=== PATIENT | female | born 1995 | race Caucasian/White ===

== ENCOUNTER 2020-04-05 22:40 | Inpatient (IN) | payer SELFPAY ==
[2020-04-05 22:42] VITALS: BP 107/63; PULSE 87; RESP 18; TEMP 36.6; O2SAT 98; BMI 25.7
--- NOTE | 2020-04-05 22:51 | ED_ITS ---
HPI - Psych General: Chief Complaint: Psychiatric Symptoms Stated Complaint: PSYCH/ HALLUCINATIONS Time Seen by Provider: 04/05/20 22:41 Source: patient and EMS Mode of arrival: EMS Limitations: no limitations History of Present Illness: HPI Narrative: 24-year-old female who is here by EMS for acute psychosis. Per EMS patient has not been taking her medicine. She has a flight of ideas here and is very difficult to talk to. She states she feels like she is going to and that her eyes are popping out of her sockets. Associated symptoms: Deny depression Review of Systems Const: Denies: fever(s), chills, body aches or change in appetite Eyes: Denies: blurry vision or eye discomfort ENMT: Denies: throat pain or dental pain Card: Denies: chest pain Resp: Denies: dyspnea GI: Denies: abdominal pain, nausea, vomiting or diarrhea : Denies: dysuria Musc: Denies: neck pain or back pain Skin/Breast: Denies: rash Neuro: Denies: headache(s) Psych: Denies: depression Kendall/Lymph: Denies: easy bruising All/Imm: Denies: urticaria PFSH ED PFSH: Social History Smoking and tobacco status: current every day smoker Physical Exam Const: COMMON NORMALS: no acute distress and patient oriented x3 GENERAL APPEARANCE: disheveled HENMT: COMMON NORMALS: normocephalic and atraumatic HEAD & SCALP: normocephalic and atraumatic Eye: COMMON NORMALS: Equal, round and reactive pupils present and EOMs intact bilaterally PUPIL: Yes Equal, round and reactive pupils present Neck/C-Spine: COMMON NORMALS: full ROM and supple Chest: COMMONS NORMALS: normal inspection of the chest and normal palpation of entire chest wall Resp: COMMON NORMALS: normal respiratory effort, No retractions, No use of accessory muscles and clear to auscultation bilaterally AUSCULTATION: clear to auscultation bilaterally Cardio: COMMON NORMALS: regular rate, regular rhythm and No murmurs present (Cardio) RATE: regular rate RHYTHM: regular rhythm GI: COMMON NORMALS: Normal to inspection, nondistended, normoactive bowel sounds present, Soft to palpation, non-tender and no masses PALPATION: Yes Soft to palpation Extremity: COMMON NORMALS: normal to inspection and full ROM Neuro: COMMON NORMALS: patient oriented x3, moves all extremities and no focal motor deficits Psych: COMMON NORMALS: cooperative THOUGHT PROCESS: disorganized, Flight of ideas present and Illogical thought process present THOUGHT CONTENT: Yes Hallucination(s) present Skin: COMMON NORMALS: no rashes or lesions noted and no wounds GENERAL SKIN EXAM: no rashes or lesions noted MDM - Psych MDM Narrative: Medical decision making narrative: Patient presents with acute psychosis was placed on a 96-hour hold. Patient's lab work here are normal and she is medically cleared. I spoke to Dr. Zavaleta and will admit to psych unit. Lab Data: Labs: Lab Results 04/05/20 04/05/20 Range/Units 22:54 22:54 WBC 9.4 (4.0-10.0) 10^3/ uL RBC 4.27 (4.1-5.3) 10^6/u L Hgb 13.4 (11.5-15.3) g/dL Hct 40.3 (37.0-47.0) % MCV 94.4 (81-99) fL MCH 31.4 (28.0-34.0) pg MCHC 33.3 (30.0-36.0) g/dL RDW 13.8 (12.1-15.1) % Plt Count 385 (130-400) 10^3/c mm MPV 9.5 (7.4-10.4) fL Neut % (Auto) 68.7 % Lymph % (Auto) 19.9 % [place] % (Auto) 8.5 % Eos % (Auto) 2.1 % Baso % (Auto) 0.4 % Neut # (Auto) 6.4 (1.8-7.7) 10^3/u L Lymph # (Auto) 1.9 (0.8-4.8) 10^3/u L [place] # (Auto) 0.8 (0.2-0.9) 10^3/u L Eos # (Auto) 0.2 (0.0-0.8) 10^3/u L Baso # (Auto) 0.0 (0.0-0.1) 10^3/u L Nucleated RBC % (a uto) 0 % Nucleated RBCs # 0.0 /100WBC Sodium 141 (136-145) mmol/L Potassium 3.4 L (3.5-5.1) mmol/L Chloride 105 (98-107) mmol/L Carbon Dioxide 26 (22-29) mmol/L Anion Gap 13.4 (5-19) BUN 12 (6-20) mg/dL Creatinine 0.6 (0.5-0.9) mg/dL GFR Calculation 120.8 (90-130) mL/min Glucose 118 H (65-115) mg/dL Calculated Osmolal ity 289 (285-295) mOsm/k g Calcium 9.7 (8.5-10.5) mg/dL Total Bilirubin 0.8 (0.15-1.2) mg/dL AST 17 (0-32) U/L ALT 7 (0-33) U/L Alkaline Phosphata se 63 (35-105) IU/L Total Protein 7.2 (6.6-8.7) g/dL Albumin 4.2 (3.5-5.2) g/dL Globulin 3.0 (1.3-4.6) g/dL Salicylates < 0.3 L (3-10) mg/dL Acetaminophen < 5.0 L (10-30) ug/mL Ethyl Alcohol < 10 (0-10) mg/dL Discharge Plan Discharge Patient Disposition: Admitted As Inpatient Admit Provider: Ramsey Zavaleta Clinical Impression: Acute psychosis Condition: Stable Coding Level of Care Code 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
[2020-04-05 22:59] LABS: Basophils % 0.4 %; Eosinophils # 0.2 10^3/uL (0.0-0.8); Eosinophils % 2.1 %; Hematocrit 40.3 % (37.0-47.0); Hemoglobin 13.4 g/dL (11.5-15.3); Lymphocytes # 1.9 10^3/uL (0.8-4.8); Lymphocytes % 19.9 %; Mean Corpuscular HGB Conc 33.3 g/dL (30.0-36.0); Mean Corpuscular Hemoglobin 31.4 pg (28.0-34.0); Mean Corpuscular Volume 94.4 fL (81-99); Mean Platelet Volume 9.5 fL (7.4-10.4); Monocytes # 0.8 10^3/uL (0.2-0.9); Monocytes % 8.5 %; Neutrophils # 6.4 10^3/uL (1.8-7.7); Neutrophils % 68.7 %; Nucleated Red Blood Cells % 0 %; Platelet Count 385 10^3/cmm (130-400); Red Blood Count 4.27 10^6/uL (4.1-5.3); Red Cell Distribution Width 13.8 % (12.1-15.1); White Blood Count 9.4 10^3/uL (4.0-10.0)
[2020-04-05 23:16] LABS: Alanine Aminotransferase 7 U/L (0-33); Albumin Level 4.2 g/dL (3.5-5.2); Alkaline Phosphatase 63 IU/L (35-105); Anion Gap 13.4 (5-19); Aspartate Amino Transferase 17 U/L (0-32); Blood Urea Nitrogen 12 mg/dL (6-20); Calcium 9.7 mg/dL (8.5-10.5); Carbon Dioxide 26 mmol/L (22-29); Chloride 105 mmol/L (98-107); Glomerular Filtration Rate 120.8 mL/min (90-130); Glucose 118 mg/dL (65-115); Osmolality Calculated 289 mOsm/kg (285-295); Potassium 3.4 mmol/L (3.5-5.1); Sodium 141 mmol/L (136-145); Total Bilirubin 0.8 mg/dL (0.15-1.2); Total Protein 7.2 g/dL (6.6-8.7)
[2020-04-05 23:19] LABS: Acetaminophen < 5.0 ug/mL (10-30); Alcohol Level < 10 mg/dL (0-10); Salicylate < 0.3 mg/dL (3-10)
[2020-04-06 00:41] VITALS: BP 115/74; PULSE 78; RESP 18; TEMP 37.1; O2SAT 97
[2020-04-06 00:42] VITALS: BP 134/89; PULSE 70; RESP 18; TEMP 36.7; O2SAT 100
[2020-04-06 06:00] VITALS: BP 96/62; PULSE 80; RESP 17; TEMP 36.8; O2SAT 98
[2020-04-06] MEDS: nicotine 2 mg Gum BUCCAL (10:51)
[2020-04-06 11:01] LABS: Add Urine Microscopic? YES; Bilirubin Urine Neg (NEGATIVE); Blood Urine Neg (Negative); Glucose Urine UA Norm (Normal); Ketones Urine Negative (Negative); Leukocyte Esterase Urine Negative (Negative); Nitrate Urine Positive (Negative); Protein Urine Neg (Negative); Specific Gravity, Urine 1.005 (1.005-1.030); Urine Appearance Clear (CLEAR); Urine Color Yellow (Yellow); Urobilinogen Urine Norm (Negative); pH Urine 7 (5-7)
[2020-04-06 11:05] LABS: HCG Qualitative Urine. Negative (Negative)
[2020-04-06 11:41] LABS: Amorphous Sediment Urine 1+; Bacteria Urine 2+; Squamous Epithelial Cell Urine 0-4 (0-5); WBC Urine 0-4 /hpf (0-5)
[2020-04-06 11:42] LABS: Add Urine Culture? Yes
[2020-04-06 11:45] LABS: Amphetamines Screen Urine Positive (Negative); Barbiturates Screen Urine Negative (Negative); Benzodiazepines Screen Urine Negative (Negative); Cocaine Screen Urine Negative (Negative); Opiate Screen Urine Negative (Negative); PCP Screen Urine Negative (Negative); THC Screen Urine Negative (Negative)
--- NOTE | 2020-04-06 12:41 | P.HP_ITS ---
Providers/Chief Complaint Admitting Physician: Skyler Holland M.D. [place] [facility] [place] Chief Complaint: PSYCH/ HALLUCINATIONS HPI NPU History of Present Illness Paz Saldana is a 24 year old female who has been hearing voices and having confusion and thought disorder for an indeterminate period of time. She had been receiving aripiprazole of unknown dose and sertraline, also of unknown dose, and she affirms that they had been quite helpful in the past. She did not get her prescriptions refilled for reasons not known to her or to us. She deteriorated and, in her words, I slipped a bit. By this she means she relapsed into methamphetamine abuse. She wants to stop it because she is concerned about her impaired ability to care for her children. Review of Systems Narrative: Const: Denies: fever(s), chills, body aches or change in appetite Eyes: Denies: blurry vision or eye discomfort ENMT: Denies: throat pain or dental pain Card: Denies: chest pain Resp: Denies: dyspnea GI: Denies: abdominal pain, nausea, vomiting or diarrhea : Denies: dysuria Musc: Denies: neck pain or back pain Skin/Breast: Denies: rash Neuro: Denies: headache(s) Psych: Denies: depression Kendall/Lymph: Denies: easy bruising All/Imm: Denies: urticaria Meds NPU Home Medications Medication Instructions Recorded Confirmed Last Taken Type No Known Home Medications 04/05/20 04/05/20 Unknown History Allergies Allergy/AdvReac Type Severity Reaction Status Date / Time No Known Allergies Allergy Verified 04/05/20 22:48 PFS NPU PFSH: Social History Smoking and tobacco status: current every day smoker Other Psychiatric History: Other Psychiatric History: Patient has a long history of psychosis that has responded to specific psychotropics but she frequently drifts into noncompliance. Mental Status Exam MSE Comments: The patient is a 24-year-old female who appears her stated age. She is somewhat disheveled and seemed to be at a loss for what to do at any given moment. Mood is dysphoric and affect is numb. Thought processes are often blocked and scattered. Speech is soft and stutter start but of normal volume, without dysarthria, aprosody or pressure. Cognitive functions are impaired: She is bereft of insight and judgment. Memory seems to be intact as is orientation. Complex abstractions leave her in the dust. She denies suicidal or homicidal ideation, plan or intent. Vitals/I&O/Wt Last Vital Signs Temp 98.2 F 04/06/20 06:00 Pulse 80 04/06/20 06:00 Resp 17 04/06/20 06:00 BP 96/62 04/06/20 06:00 Pulse Ox 98 04/06/20 06:00 Weight last 48 hrs Weight 156 lb 3.2 oz Weight 150 lb Physical Exam Narrative: EXAM NARRATIVE: Const: COMMON NORMALS: no acute distress and patient oriented x3 GENERAL APPEARANCE: disheveled HENMT: COMMON NORMALS: normocephalic and atraumatic HEAD & SCALP: normoc ephalic and atraumatic Eye: COMMON NORMALS: Equal, round and reactive pupils present and EOMs inta ct bilaterally PUPIL: Yes Equal, round and reactive pupils present Neck/C-Spine: COMMON NORMALS: full ROM and supple Chest: COMMONS NORMALS: normal inspection of the chest and normal palpation of entire chest wall Resp: COMMON NORMALS: normal respiratory effort, No retractions, No use of accessory muscles and clear to auscultation bilaterally AUSCULTATION: clear to auscultation bilaterally Cardio: COMMON NORMALS: regular rate, regular rhythm and No murmurs present (Cardio) RATE: regular rate RHYTHM: regular rhythm GI: COMMON NORMALS: Normal to inspection, nondistended, normoactive bowel sounds present, Soft to palpation, non-tender and no masses PALPATION: Yes Soft to palpation Extremity: COMMON NORMALS: normal to inspection and full ROM Neuro: COMMON NORMALS: patient oriented x3, moves all extremities and no focal motor deficits Psych: COMMON NORMALS: cooperative THOUGHT PROCESS: disorganized, Flight of ideas present and Illogical thought process present THOUGHT CONTENT: Hallucination(s) present Skin: COMMON NORMALS: no rashes or lesions noted and no wounds GENERAL SKIN EXAM: no rashes or lesions noted Data NPU : 04/05/20 22:54 04/05/20 22:54 A&P Assessment and plan (1) Acute psychosis: The patient has been on response to pharmacotherapy with aripiprazole and sertraline, which will have to be titrated again. Status: Acute Involuntary Hold Information 96 Hour Hold: 96 Hour Involuntary Admission: Yes 96 Hour Hold Ending Date: 04/11/20 96 Hour Hold Ending Time: 12:01 Attestations NPU Medical Necessity Statement*: I anticipate 5-7 midnights hospital stay. Time Spent in Patient Care: Greater than 35 minutes (>than 50% of time spent in counselling and/or direct pt care on unit) . Detailed history taking including psychosocial history. Review of pharmacological agents with which she has had experience. 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
[2020-04-06] MEDS: ARIPiprazole 10 mg Tablet PO (13:12)
[2020-04-06] MEDS: sertraline 50 mg Tablet 25 MG PO (13:13)
[2020-04-06 14:00] VITALS: BP 96/60; PULSE 93; RESP 20; TEMP 37.1; O2SAT 97
[2020-04-06 20:55] VITALS: BP 96/65; PULSE 75; RESP 16; TEMP 36.4; O2SAT 97
--- NOTE | 2020-04-06 21:47 | PC.NURSE ---
pt was offered PRN sleep and anxiety meds, but refused both.
[2020-04-07 06:00] VITALS: BP 97/63; PULSE 95; RESP 16; TEMP 36.8; O2SAT 97
[2020-04-07] MEDS: ARIPiprazole 10 mg Tablet PO (08:52)
[2020-04-07] MEDS: sertraline 50 mg Tablet 25 MG PO (08:52)
[2020-04-07 13:32] VITALS: BP 104/68; PULSE 82; RESP 18; TEMP 36.6; O2SAT 94
--- NOTE | 2020-04-07 14:12 | PM.NPN ---
Subjective NPU Subjective: Interval history: Patient states that her 2 most prominent concerns are being overwhelmed by the task of taking care of 4 children and having auditory hallucinations. She says the hallucinations began 3 years ago. Hallucinations go away when she comes into the psychiatric unit. She says that she hears a number of different voices. She cannot identify any specific voices. They say random things to her. There is no command nature to the hallucinations. The hallucinations come from outside of her head. She says that they cause her some confusion and make it difficulty to focus her attention and effectively get her tasks done. She reports irritability and insomnia as additional symptoms of depression in addition to persistent dysphoria. We reviewed her history. She reported that the sertraline and Abilify did not provide significant benefit. She says that she uses amphetamines because those of the only things that make her voices go away. She goes to sleep at various times at night but wakes up around 9:00 in the morning. She feels tired. She does sleep through the night. The problem is that she has difficulty getting to sleep at night because she cares for her 4 children. Mental Status Exam MSE Comments: Mental Status Exam: Patient is alert and interpersonally engaged. She is malodorous. Eye contact is good. She is somewhat fidgety. There are no tics or tremors. There is no attention to internal stimuli. Appearance: hygiene is poor; no gross neurological deficits., gait is unremarkable; AIMS=0 Speech: Speech is of normal rate and rhythm and easily understood. She provides free discourse and elaborates on answers appropriately. Thought processes: Thought processes are concrete. Judgment is adequate for safety. Associations: intact Psychotic processes: There is no indication of guarding or paranoia. There is no attention to the internal stimuli. Auditory hallucinations are denied at the time of the interview. Judgment: Insight is fair. Problem solving skills are adequate for safety. Orientation: The patient is oriented to person, place time and situation. Memory: no deficits noted in immediate, intermediate, or remote spheres. Attention: The patient is alert and interpersonally engaged. Language: Verbalizations are coherent. Fund of knowledge: Fund of knowledge is adequate. Affect/Mood: Affect is consistent with a depressed mood. She denies suicidal ideation Affective range is appropriate. Psychosis: perception unimpaired except through cognitive distortion and concrete thinking; reality testing intact. Cognition: Level of Consciousness: Awake, Alert and Follows Commands Ability to Follow Directions: Good Patient Orientation (long list): Person, Place, Time, Name, Age and Birthday Delusion Description: Not Present Thought Process: Appropriate Affect: Affect Description: Calm Behavior: Patient Behavior: Appropriate and Cooperative Speech Pattern: Appropriate and Clear Vitals/I&O/Wt Last Vital Signs Temp 97.9 F 04/07/20 13:32 Pulse 82 04/07/20 13:32 Resp 18 04/07/20 13:32 BP 104/68 04/07/20 13:32 Pulse Ox 94 04/07/20 13:32 Weight last 48 hrs Weight 70.851 kg Weight 68.039 kg Data NPU : 04/05/20 22:54 04/05/20 22:54 Micro: Microbiology 04/06/20 10:45 Urine Culture - Preliminary Urine,Clean Catch Gram Negative Rods Gram Negative Rods#2 Microbiology 04/06/20 10:45 Urine,Clean Catch Urine Culture - Preliminary Gram Negative Rods Gram Negative Rods#2 A&P Assessment and plan (1) Acute psychosis: Patient will be started on Celexa 10 mg daily. Sleep will be facilitated with trazodone 50 mg at bedtime. Geodon will be initiated at 20 mg at supper. Status: Acute (2) Major depression with psychotic features: Status: Acute (3) Amphetamine intoxication: Status: Resolved Involuntary Hold Information 96 Hour Hold: 96 Hour Involuntary Admission: Yes 96 Hour Hold Ending Date: 04/11/20 96 Hour Hold Ending Time: 12:01 Attestations NPU Medical Necessity Statement*: Patient will remain in the hospital another 2-4 nights for assessment of medication efficacy and tolerability. 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
[2020-04-07] MEDS: citalopram 20 mg Tablet PO (15:10)
[2020-04-07] MEDS: nicotine 2 mg Gum BUCCAL (19:50)
[2020-04-07 21:15] VITALS: BP 92/55; PULSE 73; RESP 15; TEMP 36.8; O2SAT 97
[2020-04-07] MEDS: trazodone 150 mg Tablet 75 MG PO (21:42)
[2020-04-07] MEDS: hyDROXYzine 25 mg Capsule 50 MG PO (21:42)
[2020-04-08 06:00] VITALS: BP 87/57; PULSE 68; RESP 15; TEMP 36.7; O2SAT 95
[2020-04-08] MEDS: ziprasidone hcl 20 mg Capsule PO (06:28)
[2020-04-08] MEDS: citalopram 20 mg Tablet PO (09:20)
--- NOTE | 2020-04-08 12:22 | P.PN_ITS ---
Subjective NPU Subjective: Interval history: Patient's only complaint today is that of sedation from starting the Geodon with her morning dose this morning. Otherwise she denies auditory or visual hallucinations. She denies suicidal or homicidal ideation.. Mental Status Exam MSE Comments: Mental Status Exam: Patient is alert and interpersonally engaged. Eye contact is good. There are no tics or tremors. There is no attention to internal stimuli. Appearance: hygiene is fair; no gross neurological deficits., gait is unremarkable; AIMS=0 Speech: Speech is of normal rate and rhythm and easily understood. She provides free discourse and elaborates on answers appropriately. Thought processes: Thought processes are concrete. Judgment is adequate for safety. Associations: intact Psychotic processes: There is no indication of guarding or paranoia. There is no attention to the internal stimuli. Auditory hallucinations are denied at the time of the interview. Judgment: Insight is fair. Problem solving skills are adequate for safety. Orientation: The patient is oriented to person, place time and situation. Memory: no deficits noted in immediate, intermediate, or remote spheres. Attention: The patient is alert and interpersonally engaged. Language: Verbalizations are coherent. Fund of knowledge: Fund of knowledge is adequate. Affect/Mood: Affect is consistent with a depressed mood. She denies suicidal ideation Affective range is appropriate. Psychosis: perception unimpaired except through cognitive distortion and concrete thinking; reality testing intact. Cognition: Patient Appearance: Appropriate Level of Consciousness: Awake, Alert and Follows Commands Patient Cognition Impaired: No Ability to Follow Directions: Good Hallucination Type: None Affect: Affect Description: Appropriate and Calm Behavior: Patient Behavior: Appropriate and Cooperative Speech Pattern: Appropriate and Clear Vitals/I&O/Wt Last Vital Signs Temp 98.1 F 04/08/20 06:00 Pulse 68 04/08/20 06:00 Resp 15 04/08/20 06:00 BP 87/57 04/08/20 06:00 Pulse Ox 95 04/08/20 06:00 Data NPU : 04/05/20 22:54 04/05/20 22:54 Micro: Microbiology 04/06/20 10:45 Urine Culture - Final Urine,Clean Catch Escherichia coli Escherichia coli#2 Microbiology 04/06/20 10:45 Urine,Clean Catch Urine Culture - Final Escherichia coli Escherichia coli#2 A&P Assessment and plan (1) Acute psychosis: Patient will be started on Celexa 10 mg daily. Sleep will be facilitated with trazodone 50 mg at bedtime. Geodon will be initiated at 20 mg at supper. Hospital day #3: Patient is adjusting to the initiation of antidepressant and medication for hallucinations. She is also completing her withdrawal process from amphetamine intoxication. Her 96-hour involuntary commitment is up on 04/11 at 12: 01. Status: Acute (2) Major depression with psychotic features: Status: Acute (3) Amphetamine intoxication: Status: Resolved Involuntary Hold Information 96 Hour Hold: 96 Hour Involuntary Admission: Yes 96 Hour Hold Ending Date: 04/11/20 96 Hour Hold Ending Time: 12:01 Attestations NPU Medical Necessity Statement*: Patient will remain in the hospital another 2 nights for the completion of her involuntary commitment. 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
[2020-04-08 13:39] VITALS: BP 146/69; PULSE 80; RESP 16; TEMP 36.9; O2SAT 95
[2020-04-08 20:45] VITALS: BP 97/54; PULSE 93; RESP 14; TEMP 36.8; O2SAT 95
[2020-04-09 06:00] VITALS: BP 106/70; PULSE 71; RESP 16; TEMP 37; O2SAT 98
[2020-04-09] MEDS: ziprasidone hcl 20 mg Capsule PO ×2 (06:21→21:43)
[2020-04-09] MEDS: citalopram 20 mg Tablet PO (09:02)
--- NOTE | 2020-04-09 10:13 | PM.NPN ---
Subjective NPU Subjective: Interval history: Patient states that the medications are making her excessively tired during the day. She does not feel that she is prepared to go home as she continues to have episodic suicidal thoughts. She was encouraged to initiate discharge planning. Mental Status Exam MSE Comments: Mental Status Exam: Patient is alert and interpersonally engaged. Eye contact is good. There are no tics or tremors. There is no attention to internal stimuli. Appearance: hygiene is fair; no gross neurological deficits., gait is unremarkable; AIMS=0 Speech: Speech is of normal rate and rhythm and easily understood. She provides free discourse and elaborates on answers appropriately. Thought processes: Thought processes are concrete. Judgment is adequate for safety. Associations: intact Psychotic processes: There is no indication of guarding or paranoia. There is no attention to the internal stimuli. Auditory hallucinations are denied at the time of the interview. Judgment: Insight is fair. Problem solving skills are adequate for safety. Orientation: The patient is oriented to person, place time and situation. Memory: no deficits noted in immediate, intermediate, or remote spheres. Attention: The patient is alert and interpersonally engaged. Language: Verbalizations are coherent. Fund of knowledge: Fund of knowledge is adequate. Affect/Mood: Affect is consistent with a depressed mood. She has suicidal ideation without intent affective range is appropriate. Psychosis: perception unimpaired except through cognitive distortion and concrete thinking; reality testing intact. Cognition: Patient Appearance: Appropriate Level of Consciousness: Awake, Alert and Follows Commands Patient Cognition Impaired: No Ability to Follow Directions: Good Patient Orientation (long list): Person, Place, Time, Name, Age and Birthday Comprehension Ability: No Impairment Hallucination Type: None Delusion Description: Not Present Thought Process: Appropriate Affect: Affect Description: Guarded Behavior: Patient Behavior: Irritable and Withdrawn Speech Pattern: Appropriate and Clear Vitals/I&O/Wt Last Vital Signs Temp 98.6 F 04/09/20 06:00 Pulse 71 04/09/20 06:00 Resp 16 04/09/20 06:00 BP 106/70 04/09/20 06:00 Pulse Ox 98 04/09/20 06:00 Data NPU : 04/05/20 22:54 04/05/20 22:54 Micro: Microbiology 04/06/20 10:45 Urine Culture - Final Urine,Clean Catch Escherichia coli Escherichia coli#2 Microbiology 04/06/20 10:45 Urine,Clean Catch Urine Culture - Final Escherichia coli Escherichia coli#2 A&P Assessment and plan (1) Acute psychosis: Patient will be started on Celexa 10 mg daily. Sleep will be facilitated with trazodone 50 mg at bedtime. Geodon will be initiated at 20 mg at supper. Hospital day #3: Patient is adjusting to the initiation of antidepressant and medication for hallucinations. She is also completing her withdrawal process from amphetamine intoxication. Her 96-hour involuntary commitment is up on 04/11 at 12: 01. Hospital day #4: Day #3 on Celexa and Geodon. She is having excessive sedation. Her 96-hour involuntary commitment is up at midnight tomorrow night. Status: Acute (2) Major depression with psychotic features: Status: Acute (3) Amphetamine intoxication: Status: Resolved Involuntary Hold Information 96 Hour Hold: 96 Hour Involuntary Admission: Yes 96 Hour Hold Ending Date: 04/11/20 96 Hour Hold Ending Time: 12:01 Attestations NPU Medical Necessity Statement*: Patient will remain in the hospital 1 more night for her 96-hour involuntary commitment. 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
[2020-04-09 14:00] VITALS: BP 101/70; PULSE 99; RESP 18; TEMP 37.1; O2SAT 97
[2020-04-09 22:00] VITALS: BP 111/70; PULSE 73; RESP 16; TEMP 36.2; O2SAT 97
--- NOTE | 2020-04-10 01:20 | PC.NURSE ---
TRAZODONE PT REFUSED SCHEDULED TRAZODONE. STATES IT MAKES HER TO TIRED THE NEXT DAY.
[2020-04-10 06:00] VITALS: BP 86/62; PULSE 65; RESP 16; TEMP 36.8; O2SAT 95
[2020-04-10] MEDS: citalopram 20 mg Tablet PO (09:08)
[2020-04-10] MEDS: ARIPiprazole 10 mg Tablet PO (09:24)
--- NOTE | 2020-04-10 09:38 | P.DS_ITS ---
Diagnoses at Discharge Discharge Diagnosis (1) Acute psychosis: Status: Resolved (2) Major depression with psychotic features: Status: Chronic (3) Amphetamine intoxication: Status: Resolved Reason for Visit Reason for Visit: PSYCH/ HALLUCINATIONS Brief History: Paz Saldana is a 24 year old female who has been hearing voices and having confusion and thought disorder for an indeterminate period of time. She had been receiving aripiprazole of unknown dose and sertraline, also of unknown dose, and she affirms that they had been quite helpful in the past. She did not get her prescriptions refilled for reasons not known to her or to us. She deteriorated and, in her words, I slipped a bit. By this she means she relapsed into methamphetamine abuse. She wants to stop it because she is concerned about her impaired ability to care for her children. Hospital Day #2: Interval history: Patient states that her 2 most prominent concerns are being overwhelmed by the task of taking care of 4 children and having auditory hallucinations. She says the hallucinations began 3 years ago. Hallucinations go away when she comes into the psychiatric unit. She says that she hears a number of different voices. She cannot identify any specific voices. They say random things to her. There is no command nature to the hallucinations. The hallucinations come from outside of her head. She says that they cause her some confusion and make it difficulty to focus her attention and effectively get her tasks done. She reports irritability and insomnia as additional symptoms of depression in addition to persistent dysphoria. We reviewed her history. She reported that the sertraline and Abilify did not provide significant benefit. She says that she uses amphetamines because those of the only things that make her voices go away. She goes to sleep at various times at night but wakes up around 9:00 in the morning. She feels tired. She does sleep through the night. The problem is that she has difficulty getting to sleep at night because she cares for her 4 children. Hospital Course Hospital Course Patient was admitted to the adult psychiatric unit Full array of individual and group therapies as part of the unit protocol. She will have access to trained nursing personnel on a 24-hour basis. She received a social work consultation psychiatric evaluation. The results of that evaluation showed: 1) Acute psychosis: The patient has been on response to pharmacotherapy with aripiprazole and sertraline, which will have to be titrated again. Hospital Day #2: Interval history: Patient states that her 2 most prominent concerns are being overwhelmed by the task of taking care of 4 children and having auditory hallucinations. She says the hallucinations began 3 years ago. Hallucinations go away when she comes into the psychiatric unit. She says that she hears a number of different voices. She cannot identify any specific voices. They say random things to her. There is no command nature to the hallucinations. The hallucinations come from outside of her head. She says that they cause her some confusion and make it difficulty to focus her attention and effectively get her tasks done. She reports irritability and insomnia as additional symptoms of depression in addition to persistent dysphoria. We reviewed her history. She reported that the sertraline and Abilify did not provide significant benefit. She says that she uses amphetamines because those of the only things that make her voices go away. She goes to sleep at various times at night but wakes up around 9:00 in the morning. She feels tired. She does sleep through the night. The problem is that she has difficulty getting to sleep at night because she cares for her 4 children. Involuntary Hold Information 96 Hour Hold: 96 Hour Involuntary Admission: Yes 96 Hour Hold Ending Date: 04/11/20 96 Hour Hold Ending Time: 12:01 Mental Status Exam MSE Comments: Discharge Mental Status Exam: Patient is alert and interpersonally engaged. Her attitude is apathetic and indifferent. Appearance: hygiene is good; no gross neurological deficits., gait is unremarkable; AIMS=0 Speech: Speech is of normal rate and rhythm and easily understood. Thought processes: Thought processes are abstract. Judgment is adequate for safety. Associations: intact Psychotic processes: There is no indication of guarding or paranoia. There is no attention to the internal stimuli. Auditory and visual hallucinations are denied. Judgment: Insight is fair. Problem solving skills are adequate for safety. Orientation: The patient is oriented to person, place time and situation. Memory: no deficits noted in immediate, intermediate, or remote spheres. Attention: The patient is alert and interpersonally engaged. Language: Verbalizations are coherent. Fund of knowledge: Fund of knowledge is adequate. Affect/Mood: Affect is consistent with a euthymic mood. denied suicidal ideation Affective range is appropriate. Psychosis: perception unimpaired except through cognitive distortion; reality testing intact. Discharge Data Vitals: Last Vital Signs Temp 98.3 F 04/10/20 06:00 Pulse 65 04/10/20 06:00 Resp 16 04/10/20 06:00 BP 86/62 04/10/20 06:00 Pulse Ox 95 04/10/20 06:00 Discharge Plan Discharge Patient Disposition: Home, Self-Care Condition: Stable Prescriptions: New trazodone 50 mg Tablet 50 mg PO BEDTIME PRN (Reason: Sleep) Qty: 10 RF: 4 sertraline 100 mg Tablet 100 mg PO DAILY Qty: 30 RF: 4 aripiprazole 10 mg Tablet 10 mg PO DAILY Qty: 30 RF: 4 Discharge Orders: Discharge Order (Routine); Ordered 04/10/20 Ordered By: Myron Whalen [place] [facility] [place]Outside] - 1-3 days (Go as soon as you can to [facility] to request services!! Once you do your initial intake, you will be able to get appointments. If you get appointment, you will be able to get scripts refilled. ) Discharge Attestations NPU Time Spent in Discharge Care*: greater than 30 min Coding Level of Care Code Acute Ribbon Lapper Tender for Etienne Fwd Diagnoses Acute psychosis F23 Major depression with psychotic features F32.3 Amphetamine intoxication F15.929
[2020-04-10 12:25] VITALS: BP 86/62; PULSE 65; RESP 16; TEMP 36.8; O2SAT 95
[2020-04-10 12:27] VITALS: BP 86/62; PULSE 65; RESP 16; TEMP 36.8; O2SAT 95
== END 2020-04-10 14:00 | disposition home or self-care (01) | DRG 885 ==
LOC: ER 23:23 → NP 23:37
PROVIDERS: Admitting Provider Psychiatry & Neurology Psychiatry; Emergency Provider Emergency Medicine; Visit Provider Psychiatry & Neurology Psychiatry
DX: F23 Brief psychotic disorder (principal); F32.3 Major depressive disorder, single episode, severe with psychotic features; F17.210 Nicotine dependence, cigarettes, uncomplicated; F15.129 Other stimulant abuse with intoxication, unspecified
CPT/HCPCS: 12345; 80053; 80306; 80307; 81001; 81003; 81025; 85025; 87077; 87086; 87186; 99284

== ENCOUNTER 2020-04-14 12:12 | Emergency (ER) | payer SELFPAY ==
[2020-04-14 12:14] VITALS: BP 92/56; PULSE 95; RESP 18; TEMP 37.1; O2SAT 99; BMI 24.9
[2020-04-14] MEDS: LORazepam 1 mg Tablet PO (12:40)
--- NOTE | 2020-04-14 12:48 | ED_ITS ---
HPI - General Adult General: Chief complaint: General Medical Stated complaint: PSYCH EVAL Time Seen by Provider: 04/14/20 12:20 Source: patient and EMS Mode of arrival: EMS Limitations: no limitations History of Present Illness: HPI narrative: 24-year-old female here with EMS stating she is got left eye pain. She states she feels like her eyes get a pop out of her socket for weeks. She is admitted here last week for an acute psychosis and methamphetamine abuse. Patient denies any change in vision. She denies any worsening or improving factors. Associated symptoms: Deny chest pain, dyspnea, headache(s), nausea, rash or vomiting Review of Systems Const: Denies: fever(s), chills, body aches or change in appetite Eyes: Denies: blurry vision or eye discomfort ENMT: Denies: throat pain or dental pain Card: Denies: chest pain Resp: Denies: dyspnea GI: Denies: abdominal pain, nausea, vomiting or diarrhea : Denies: dysuria Musc: Denies: neck pain or back pain Skin/Breast: Denies: rash Neuro: Denies: headache(s) Psych: Denies: depression Kendall/Lymph: Denies: easy bruising All/Imm: Denies: urticaria PFSH ED PFSH: Social History Smoking and tobacco status: never smoked Physical Exam Const: COMMON NORMALS: no acute distress, patient oriented x3 and healthy appearing HENMT: COMMON NORMALS: normocephalic and atraumatic HEAD & SCALP: normocephalic and atraumatic Eye: COMMON NORMALS: Equal, round and reactive pupils present and EOMs intact bilaterally PUPIL: Yes Equal, round and reactive pupils present Neck/C-Spine: COMMON NORMALS: full ROM and supple Chest: COMMONS NORMALS: normal inspection of the chest and normal palpation of entire chest wall Resp: COMMON NORMALS: normal respiratory effort, No retractions, No use of accessory muscles and clear to auscultation bilaterally AUSCULTATION: clear to auscultation bilaterally Cardio: COMMON NORMALS: regular rate, regular rhythm and No murmurs present (Cardio) RATE: regular rate RHYTHM: regular rhythm GI: COMMON NORMALS: Normal to inspection, nondistended, normoactive bowel sounds present, Soft to palpation, non-tender and no masses PALPATION: Yes Soft to palpation Extremity: COMMON NORMALS: normal to inspection and full ROM Neuro: COMMON NORMALS: patient oriented x3, moves all extremities and no focal motor deficits Psych: COMMON NORMALS: mental status grossly normal, Normal thought process present and cooperative THOUGHT PROCESS: Normal thought process present Skin: COMMON NORMALS: no rashes or lesions noted and no wounds GENERAL SKIN EXAM: no rashes or lesions noted Course Vital Signs: Vital signs: Vital Signs Temperature 98.7 F 04/14/20 12:14 Pulse Rate 95 04/14/20 12:14 Respiratory Rate 18 04/14/20 12:14 Blood Pressure 92/56 04/14/20 12:14 Pulse Oximetry 99 04/14/20 12:14 MDM - General Adult MDM Narrative: Medical decision making narrative: Paz presents here with eye pain. She has no signs of abrasion exam here is benign. She has no signs of glaucoma. This is likely psychogenic as this is been going on for weeks. She does feel like her eyes get a pop out of socket. I spoke to her and will get her set up with follow-up with an fabric designer and she is to continue following with behavioral health clinic. She is not acutely psychotic here and has no suicidal or homicidal ideations. Patient is stable for discharge is return if worsening. Discharge Plan Discharge Patient Disposition: Home, Self-Care Clinical Impression: Acute left eye pain Condition: Stable Prescriptions: No Action trazodone 50 mg Tablet 50 mg PO BEDTIME PRN (Reason: Sleep) Qty: 10 RF: 4 sertraline 100 mg Tablet 100 mg PO DAILY Qty: 30 RF: 4 aripiprazole 10 mg Tablet 10 mg PO DAILY Qty: 30 RF: 4 Discharge Orders: Discharge Order (Routine); Ordered 04/14/20 Ordered By: Jamie Giordano Referrals: Flavio Tucker MD [Physician] - Discharge Diet: Advance as tolerated Discharge Activity: Resume usual activity Coding Level of Care Code ED Manager Technical Support for Santyg Fwd Exam Comprehensive
--- NOTE | 2020-04-14 13:31 | PC.NURSE ---
Patient's mother contacted to transport patient home.
[2020-04-14 16:15] VITALS: BP 106/49; PULSE 92; RESP 18; TEMP 37.1; O2SAT 94
--- NOTE | 2020-04-15 13:17 | DCPLANNER ---
manager global communications had order to schedule a follow up appointment for patient with Dr. Tucker. manager global communications called the office of Dr. Tucker, patient does not have insurance, will have to pay at least $90.00 up front. manager global communications called patient to inform patient of this, was unable to speak with patient at this time, a voicemail was left for patient to return senior case manager phone call.
== END 2020-04-14 16:17 | disposition home or self-care (01) ==
PROVIDERS: Emergency Provider Emergency Medicine
DX: H57.12 Ocular pain, left eye (principal)
CPT/HCPCS: 12345; 99283

== ENCOUNTER 2021-02-24 21:43 | Inpatient (IN) | payer MEDICAID, SELFPAY ==
[2021-02-24 21:47] VITALS: BP 111/67; PULSE 95; RESP 17; TEMP 36.4; O2SAT 96; BMI 26.6
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
[2021-02-24] MEDS: haloperidol inj 5 mg/mL INJ 1 mL IM (22:05)
[2021-02-24 22:06] LABS: Basophils # 0.1 10^3/uL (0.0-0.1); Basophils % 0.5 %; Eosinophils # 0.2 10^3/uL (0.0-0.8); Eosinophils % 1.3 %; Hematocrit 42.6 % (37.0-47.0); Hemoglobin 14.1 g/dL (11.5-15.3); Lymphocytes # 3.3 10^3/uL (0.8-4.8); Lymphocytes % 26.4 %; Mean Corpuscular HGB Conc 33.1 g/dL (30.0-36.0); Mean Corpuscular Hemoglobin 30.7 pg (28.0-34.0); Mean Corpuscular Volume 92.6 fL (81-99); Mean Platelet Volume 9.2 fL (7.4-10.4); Monocytes % 8.2 %; Neutrophils # 7.93 10^3/uL (1.8-7.7); Neutrophils % 63.4 %; Nucleated Red Blood Cells % 0 %; Platelet Count 369 10^3/cmm (130-400); Red Cell Distribution Width 14.1 % (12.1-15.1); White Blood Count 12.5 10^3/uL (4.0-10.0)
[2021-02-24] MEDS: LORazepam 2 mg/mL INJ 1 mL IM (22:08)
[2021-02-24 22:18] LABS: Amphetamines Screen Urine Positive (Negative); Barbiturates Screen Urine Negative (Negative); Benzodiazepines Screen Urine Negative (Negative); Cocaine Screen Urine Negative (Negative); Opiate Screen Urine Negative (Negative); PCP Screen Urine Negative (Negative); THC Screen Urine Negative (Negative)
[2021-02-24 22:31] LABS: Alanine Aminotransferase 10 U/L (0-33); Albumin Level 4.5 g/dL (3.5-5.2); Alkaline Phosphatase 59 IU/L (35-105); Anion Gap 14.3 (5-19); Aspartate Amino Transferase 13 U/L (0-32); Blood Urea Nitrogen 19 mg/dL (6-20); Carbon Dioxide 23 mmol/L (22-29); Chloride 102 mmol/L (98-107); Globulin 2.8 g/dL (1.3-4.6); Glomerular Filtration Rate 191.5 mL/min (90-130); Glucose 80 mg/dL (65-115); Osmolality Calculated 283 mOsm/kg (285-295); Potassium 3.3 mmol/L (3.5-5.1); Sodium 136 mmol/L (136-145); Total Bilirubin 1.6 mg/dL (0.15-1.2); Total Protein 7.3 g/dL (6.6-8.7)
[2021-02-24 22:32] LABS: Acetaminophen < 5.0 ug/mL (10-30); Alcohol Level < 10 mg/dL (0-10); Salicylate < 0.3 mg/dL (3-10)
[2021-02-24 22:51] LABS: HCG Qualitative Urine. Negative (Negative)
[2021-02-25 00:05] VITALS: BP 98/63; PULSE 82; RESP 16; O2SAT 97
[2021-02-25 00:10] VITALS: BP 77/49; PULSE 85; RESP 18; TEMP 36.7; O2SAT 95
--- NOTE | 2021-02-25 00:23 | PC.NURSE ---
notified charge nurse of /jammie/02/25/2021/0023
--- NOTE | 2021-02-25 00:27 | PC.NURSE ---
Skin assessment revealer what appeared to be an insect bite left lower rib area. No other wounds or injuries noted.
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
[2021-02-25 06:00] VITALS: BP 104/69; PULSE 80; RESP 18; TEMP 36.4; O2SAT 97
[2021-02-25] MEDS: acetaminophen 325 mg Tablet 650 MG PO (13:19)
[2021-02-25 14:00] VITALS: BP 93/60; PULSE 104; RESP 17; TEMP 36.3; O2SAT 98
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
[2021-02-25 20:06] VITALS: BP 94/61; PULSE 112; RESP 18; TEMP 36.6; O2SAT 96
[2021-02-26 06:00] VITALS: BP 115/76; PULSE 115; RESP 15; TEMP 36.5; O2SAT 96
--- NOTE | 2021-02-26 11:28 | P.PN_ITS ---
Subjective NPU Subjective: Interval history: Paz presented today reporting that she does not think that she needs medication and believes that she is supposed to be here and gets forced here with no cause each time. She endorsed that she had just been inpatient at [place] and they use Haldol and she feels the Haldol is more effective than Abilify. She reports he does not like how any the medication makes her feel but we discussed the fact that it seems fairly clear that she needs medication to help her with her current functioning. We discussed the risk benefits and alternatives of a trial of Haldol and she understood and agreed proceed as is documented in this note. Mental Status Exam MSE Comments: This is an overweight white female in hospital scrubs with limited grooming and eye contact. No abnormal movements except for significant psychomotor retardation and significant conversational motioning as she was speaking to herself under her breath. Intermittently cooperative with exam in mild to moderate distress. Speech was decreased rate and volume with significant pauses often when she was having a conversation with herself as if we were not in the room under her breath. Mood described as fine affect subdued and irritable. Thought process mostly organized. Thought content: Patient denies suicidal or homicidal ideations, there are no delusions reported but some paranoia and guardedness noted, she denied any auditory or visual hallucinations, but appeared to be attending to internal stimuli. Attention and concentration were limited with significant distraction and memory was unreliable but none were formally tested. She is alert and oriented x3. Insight and judgment are impaired and impulse control is impaired. Vitals/I&O/Wt Last Vital Signs Temp 97.7 F 02/26/21 06:00 Pulse 115 H 02/26/21 06:00 Resp 15 02/26/21 06:00 BP 115/76 02/26/21 06:00 Pulse Ox 96 02/26/21 06:00 Weight last 48 hrs Weight 70.307 kg Data NPU : 02/24/21 21:50 02/24/21 21:50 A&P Additional A&P Information (1) Acute psychosis: (2) Drug-induced psychotic disorder: (3) Methamphetamine use disorder, severe: Additional A&P Information This is a 25-year-old white female with a long history of addiction and psychosis with significant psychosocial stressors and challenges surrounding custody of her children who presents with active addiction, psychosis on a 96- hour hold. 1. Continue current medication. We will start a trial of Haldol 5 mg daily and explore the possibility of an injection of Haldol Decanoate given her limited adherence to the medication. We will also restart her Zoloft. 2. Continue every 15 minute checks for safety. 3. Encourage individual, group and milieu therapies. 4. Encourage sober living treatment after discharge at the highest level of care to which she is willing to commit. Involuntary Hold Information 96 Hour Hold: 96 Hour Involuntary Admission: Yes 96 Hour Hold Ending Date: 02/27/21 96 Hour Hold Ending Time: 12:22 Attestations NPU Medical Necessity Statement*: Inpatient hospitalization is medically necessary and the clinically appropriate intervention at this time. We will monitor medications and make changes as indicated. Likely length of stay 3 to 5 days. We will evaluate for the necessity of the 96-hour hold, and there is some possi bility that if she does not show improvement she could need a 21-day hold. Coding Level of Care Code Acute Butter Wrapper for Etienne Campos
[2021-02-26] MEDS: haloperidol 5 mg Tablet PO (12:45)
[2021-02-26 14:00] VITALS: BP 100/60; PULSE 92; RESP 17; TEMP 36.3; O2SAT 96
[2021-02-26] MEDS: nicotine 2 mg Gum BUCCAL (20:27)
[2021-02-26] MEDS: acetaminophen 325 mg Tablet 650 MG PO (20:28)
[2021-02-26 22:00] VITALS: BP 96/63; PULSE 91; RESP 16; TEMP 36.8; O2SAT 97
[2021-02-27] MEDS: ondansetron 4 MG Tablet PO (05:24)
--- NOTE | 2021-02-27 05:25 | PC.NURSE ---
Patient came to nurses station C/O mild nausea. 4mg Zofran PO given.
[2021-02-27 06:00] VITALS: BP 101/68; PULSE 84; RESP 18; TEMP 36.6; O2SAT 95
--- NOTE | 2021-02-27 06:15 | PC.NURSE ---
Addendum entered by Gris Porter RN 02/27/21 06:37: pt reports feeling better since receiving Zofran, no nausea at this time. Original Note: Behavior denied si/hi, denied pain, stated she felt nauseated this morning, med nurse administered zofran, will continue to observe.
--- NOTE | 2021-02-27 06:40 | PC.NURSE ---
Bizaar behavior pt is talking to herself, laughing, and pacing the hallway to the dayroom. Her behavior is changing since she woke up. Making odd hand gestures, facial expressions change rapidly, almost seems to be rapid cycling emotions. Noticeable change in affect and mood since waking. Increased activity level noted. Will continue to observe.
[2021-02-27] MEDS: haloperidol 5 mg Tablet PO (07:43)
[2021-02-27 14:00] VITALS: BP 95/51; PULSE 80; RESP 18; TEMP 36.1; O2SAT 97
--- NOTE | 2021-02-27 18:47 | P.PN_ITS ---
Subjective NPU Subjective: Interval history: Paz presents today continuing in the feedback loop of not acknowledging the role of her addiction in her circumstance. She continues to downplay her methamphetamine use. And clearly was unaware that she is having psychosis and talking to herself. We discussed signs of improvement with less of the speaking to herself even while we are in the room. To continue to focus on getting her kids back and we continue to advise her that her best way to do that is to limit 8 methamphetamine/drug use completely regardless of how significant she thinks it is as she continued to endorse that her mother uses methamphetamine when more than her and no one is giving her a hard time. Mental Status Exam MSE Comments: This is an overweight white female in hospital scrubs with limited grooming and eye contact. No abnormal movements except for significant psychomotor retardation and less conversational motioning as she was speaking to herself under her breath. Mostly cooperative with exam in mild distress. Speech was decreased rate and volume with significant pauses often when she was having a conversation with herself as if we were not in the room under her breath. Mood described I am okay, affect subdued but less irritable. Thought process mostly organized. Thought content: Patient denies suicidal or homicidal ideations, there are no delusions reported but some paranoia and guardedness noted, she denied any auditory or visual hallucinations, but appeared to be attending to internal stimuli. Attention and concentration were limited, but im proving with significant distraction and memory was unreliable but none were formally tested. She is alert and oriented x3. Insight and judgment are impaired and impulse control is impaired. Vitals/I&O/Wt Last Vital Signs Temp 98.2 F 02/27/21 19:57 Pulse 94 02/27/21 19:57 Resp 17 02/27/21 19:57 BP 88/58 02/27/21 19:57 Pulse Ox 96 02/27/21 19:57 Data NPU : 02/24/21 21:50 02/24/21 21:50 A&P Additional A&P Information (1) Acute psychosis: (2) Drug-induced psychotic disorder: (3) Methamphetamine use disorder, severe: Additional A&P Information This is a 25-year-old white female with a long history of addiction and psychosi s with significant psychosocial stressors and challenges surrounding custody of her children who presents with active addiction, psychosis on a 96-hour hold. 1. Continue current medication. 2. Continue every 15 minute checks for safety. 3. Encourage individual, group and milieu therapies. 4. Encourage sober living treatment after discharge at the highest level of care to which she is willing to commit. Involuntary Hold Information 96 Hour Hold: 96 Hour Involuntary Admission: Yes 96 Hour Hold Ending Date: 02/27/21 96 Hour Hold Ending Time: 12:22 Attestations NPU Medical Necessity Statement*: Inpatient hospitalization is medically necessary and the clinically appropriate intervention at this time. We will monitor medications and make changes as indicated. Likely length of stay 3 to 5 days. We will evaluate for the necessity of the 96-hour hold, and there is some possibility that if she does not show improvement she could need a 21-day hold. Coding Level of Care Code Acute Supervisor Firearms for Etienne Campos
[2021-02-27 19:57] VITALS: BP 88/58; PULSE 94; RESP 17; TEMP 36.8; O2SAT 96
[2021-02-28 06:00] VITALS: BP 120/81; PULSE 95; RESP 18; TEMP 36.4; O2SAT 97
[2021-02-28] MEDS: haloperidol 5 mg Tablet PO (08:27)
[2021-02-28] MEDS: BuSPIRONE 10 mg Tablet 15 MG PO ×2 (12:58→16:47)
[2021-02-28 14:00] VITALS: BP 104/50; PULSE 81; RESP 15; TEMP 37; O2SAT 96
--- NOTE | 2021-02-28 17:46 | P.PN_ITS ---
Subjective NPU Subjective: Interval history: Paz presents today reporting she like to go home soon. She continues focus on her children seem to be slightly more open to the conversation about the improvements she needs to focus on if she wants her a chance that having a functional relationship with her children. Reviewed and is seeming to be less likely to do that she is walking through the unit. She reports that she slept really well for the first time and reports that she is feeling better. We discussed the likelihood of discharge on Tuesday if she continue to take the medicine and have continued improvement. She did endorse having significant anxiety almost to the level of panic and we discussed the risks, benefits and alternatives of starting BuSpar 15 mg p.o. twice daily and she understood to be proceed as documented in this note. Mental Status Exam MSE Comments: This is an overweight white female in hospital scrubs with limited grooming and eye contact. No abnormal movements except for improving psychomotor retardation. Cooperative with exam in mild distress. Speech was decreased rate and volume. Mood described a little better, affect less subdued and congruent. Thought process mostly organized. Thought content: Patient denies suicidal or homicidal ideations, there are no delusions reported but some paranoia and guardedness noted, she denied any auditory or visual hallucinations. Attention and concentration were limited improving, and memory was unreliable but none were formally tested. She is alert and oriented x3. Insight and judgment are impaired, but improving and impulse control is impaired. Vitals/I&O/Wt Last Vital Signs Temp 98.6 F 02/28/21 14:00 Pulse 81 02/28/21 14:00 Resp 15 02/28/21 14:00 BP 104/50 02/28/21 14:00 Pulse Ox 96 02/28/21 14:00 Data NPU : 02/24/21 21:50 02/24/21 21:50 A&P Additional A&P Information (1) Acute psychosis: (2) Drug-induced psychotic disorder: (3) Methamphetamine use disorder, severe: Additional A&P Information This is a 25-year-old white female with a long history of addiction and psychosis with significant psychosocial stressors and challenges surrounding custody of her children who presents with active addiction, psychosis on a 96-h our hold. 1. Continue current medication. Start BuSpar 50 mg p.o. twice daily. 2. Continue every 15 minute checks for safety. 3. Encourage individual, group and milieu therapies. 4. Encourage sober living treatment after discharge at the highest level of care to which she is willing to commit. Involuntary Hold Information 96 Hour Hold: 96 Hour Involuntary Admission: Yes 96 Hour Hold Ending Date: 02/27/21 96 Hour Hold Ending Time: 12:22 Attestations NPU Medical Necessity Statement*: Inpatient hospitalization is medically necessary and the clinically appropriate intervention at this time. We will monitor medications and make changes as indicated. Likely length of stay 2-4 days. Coding Level of Care Code Acute Diesel Fitter Mechanic for Etienne Campos
[2021-02-28 20:52] VITALS: BP 100/67; PULSE 69; RESP 16; TEMP 36.7; O2SAT 99
[2021-02-28] MEDS: trazodone 50 mg Tablet PO (21:27)
--- NOTE | 2021-02-28 21:28 | PC.NURSE ---
Patient requested something to help sleep. She was on the phone earlier and that upset her. Now she cant sleep. Trazadone 50mg PO given.
[2021-03-01 06:00] VITALS: BP 91/68; PULSE 56; RESP 18; TEMP 36.4; O2SAT 97
[2021-03-01] MEDS: BuSPIRONE 10 mg Tablet 15 MG PO ×2 (08:03→21:01)
[2021-03-01] MEDS: haloperidol 5 mg Tablet PO (08:03)
[2021-03-01 14:00] VITALS: BP 109/69; PULSE 95; RESP 18; TEMP 36.4
[2021-03-01] MEDS: nicotine 2 mg Gum BUCCAL (14:56)
[2021-03-01] MEDS: hyDROXYzine 25 mg Capsule 50 MG PO (14:56)
--- NOTE | 2021-03-01 14:56 | PC.NURSE ---
Addendum entered by Emerita Acosta LPN 03/01/21 17:36: prn med effective no further c/o anxiety Original Note: PRN VISTARIL 50 MG GIVEN PO PER PT C/O STATED ANXIETY. PT UPSET THE PHYSICIAN DIDN'T START ANY NEW MEDS FOR ANXIETY. WILL CONT TO MONITOR
[2021-03-01 21:37] VITALS: BP 99/60; PULSE 76; RESP 18; TEMP 37; O2SAT 96
--- NOTE | 2021-03-01 22:54 | PM.NPN ---
Subjective NPU Subjective: Interval history: Paz presents today reporting that she is doing better and hopeful that she could discharge and get back to her kids. She reports that the BuSpar is working well and she feels she is doing better overall. We discussed the possibility of considering discharge tomorrow versus a 21-day hold with the former being more likely. We discussed working with the treatment team in the morning to consider the possibilities. Mental Status Exam MSE Comments: This is an overweight white female in hospital scrubs with limited grooming and eye contact. No abnormal movements except for resolving psychomotor retardation. Cooperative with exam in no acute distress. Speech was decreased rate and volume, but improving. Mood described as better, affect congruent. Thought process mostly organized. Thought content: Patient denies suicidal or homicidal ideations, there are no delusions reported and less paranoia and guardedness noted, she denied any auditory or visual hallucinations. Attention and concentration were improving, and memory was unreliable but none were formally tested. She is alert and oriented x3. Insight and judgment are limited, but improving and impulse control is limited. Vitals/I&O/Wt Last Vital Signs Temp 98.6 F 03/01/21 21:37 Pulse 76 03/01/21 21:37 Resp 18 03/01/21 21:37 BP 99/60 03/01/21 21:37 Pulse Ox 96 03/01/21 21:37 Weight last 48 hrs Weight 70.307 kg Data NPU : 02/24/21 21:50 02/24/21 21:50 A&P Additional A&P Information (1) Acute psychosis: (2) Drug-induced psychotic disorder: (3) Methamphetamine use disorder, severe: Additional A&P Information This is a 25-year-old white female with a long history of addiction and psychosis with significant psychosocial stressors and challenges surrounding custody of her children who presents with active addiction, psychosis on a 96-hour hold. 1. Continue current medication. 2. Continue every 15 minute checks for safety. 3. Encourage individual, group and milieu therapies. 4. Encourage sober living treatment after discharge at the highest level of care to which she is willing to commit. Involuntary Hold Information 96 Hour Hold: 96 Hour Involuntary Admission: Yes 96 Hour Hold Ending Date: 02/27/21 96 Hour Hold Ending Time: 12:22 Attestations NPU Medical Necessity Statement*: Inpatient hospitalization is medically necessary and the clinically appropriate intervention at this time. We will monitor medications and make changes as indicated. Likely length of stay 1-3 days. Coding Level of Care Code Acute Clinical Research Physician for Etienne Campos
[2021-03-02 06:00] VITALS: BP 99/67; PULSE 106; RESP 15; TEMP 36.8; O2SAT 94
[2021-03-02] MEDS: BuSPIRONE 10 mg Tablet 15 MG PO (09:15)
[2021-03-02] MEDS: haloperidol 5 mg Tablet PO (09:16)
[2021-03-02 14:00] VITALS: BP 99/68; PULSE 86; RESP 17; TEMP 37.1; O2SAT 97
[2021-03-02] MEDS: nicotine 2 mg Gum BUCCAL (14:28)
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
[2021-03-02 15:06] VITALS: BP 99/68; PULSE 86; RESP 17; TEMP 37.1; O2SAT 97
== END 2021-03-02 17:20 | disposition home or self-care (01) | DRG 897 ==
LOC: ER 22:46 → NP 23:21
PROVIDERS: Admitting Provider Psychiatry & Neurology Psychiatry; Emergency Provider Emergency Medicine; Visit Provider Psychiatry & Neurology Psychiatry
DX: F15.251 Other stimulant dependence with stimulant-induced psychotic disorder with hallucinations (principal); F17.200 Nicotine dependence, unspecified, uncomplicated
CPT/HCPCS: 80053; 80306; 80307; 81025; 85025; 96372; 99285; J1630; J2060; Q0162

== ENCOUNTER → 2021-11-23 13:20 | Outpatient (BNVA) | payer MEDICAID, SELFPAY | PROVIDERS: Visit Provider Psychiatry & Neurology Psychiatry | DX: F41.1 Generalized anxiety disorder (principal); F15.20 Other stimulant dependence, uncomplicated | CPT/HCPCS: 99204 ==

== ENCOUNTER → 2021-12-08 15:37 | Outpatient (BNVA) | payer MEDICAID, SELFPAY | PROVIDERS: Visit Provider Psychiatry & Neurology Psychiatry | DX: F41.1 Generalized anxiety disorder (principal); F15.20 Other stimulant dependence, uncomplicated; F19.959 Other psychoactive substance use, unspecified with psychoactive substance-induced psychotic disorder, unspecified | CPT/HCPCS: 99214 ==

== ENCOUNTER → 2021-12-21 14:49 | Outpatient (BNVA) | payer MEDICAID, SELFPAY | PROVIDERS: Visit Provider Psychiatry & Neurology Psychiatry | DX: F41.1 Generalized anxiety disorder (principal); F15.20 Other stimulant dependence, uncomplicated; F19.959 Other psychoactive substance use, unspecified with psychoactive substance-induced psychotic disorder, unspecified | CPT/HCPCS: 99214 ==

== ENCOUNTER → 2022-01-05 15:43 | Outpatient (BNVA) | payer MEDICAID, SELFPAY | PROVIDERS: Visit Provider Psychiatry & Neurology Psychiatry | DX: F41.1 Generalized anxiety disorder (principal); F15.20 Other stimulant dependence, uncomplicated; F19.959 Other psychoactive substance use, unspecified with psychoactive substance-induced psychotic disorder, unspecified | CPT/HCPCS: 99214 ==

== ENCOUNTER → 2022-01-18 14:58 | Outpatient (BNVA) | payer MEDICAID, SELFPAY | PROVIDERS: Visit Provider Psychiatry & Neurology Psychiatry | DX: F41.1 Generalized anxiety disorder (principal); F15.20 Other stimulant dependence, uncomplicated; F19.959 Other psychoactive substance use, unspecified with psychoactive substance-induced psychotic disorder, unspecified | CPT/HCPCS: 99214 ==

== ENCOUNTER 2023-05-30 22:30 | Outpatient (CLI) | payer MEDICAID, SELFPAY ==
[2023-05-30] VITALS (15 sets, daily range): BP systolic 96–111; BP diastolic 52–70; PULSE 84–120; RESP 16; TEMP 36; O2SAT 92–100; BMI 31.4
[2023-05-30 23:54] LABS: Blood Urine 2+ (Negative); Glucose Urine UA Norm (Normal); Ketones Urine Negative (Negative); Nitrate Urine Positive (Negative); Protein Urine 3+ (Negative); Specific Gravity, Urine 1.015 (1.005-1.030); Urine Appearance Turbid (CLEAR); Urine Color Light yellow (Yellow); pH Urine 6 (5-7)
[2023-05-30 23:55] LABS: Bacteria Urine 3+ /hpf; Bilirubin Urine Neg (Negative); Leukocyte Esterase Urine 2+ (Negative); RBC Urine 0-4 /hpf (0-2); Squamous Epithelial Cell Urine 0-4 /hpf (0-5); Urobilinogen Urine Norm (Negative); WBC Urine TOO NUMEROUS TO CNT /hpf (0-5)
[2023-05-30 23:56] LABS: Add Urine Culture? Yes
[2023-05-31] VITALS (7 sets, daily range): BP systolic 96–110; BP diastolic 55–70; PULSE 87–89; RESP 16; TEMP 36.1
--- NOTE | 2023-05-31 00:47 | USR_ITS ---
PROCEDURE INFORMATION: Exam: US , Limited Exam date and time: 05/31/2023 1:04 AM Age: 27 years old Clinical indication: complicated by abdominal or pelvic pain; Other: Cramping. No vaginal bleeding; Gestational age or lmp: 30w 6 d; ; Patient HX: All prior births vaginal; Additional info: Limited care, 29.6 weeks no prior US, cramping LABS AND CLINICAL REPORTS: Last menstrual period start date: 11/02/2022 Gestational age (Established): 30 w 0 d Estimated due date (Established): 08/09/2023 TECHNIQUE: Imaging protocol: Real-time ultrasound of the maternal uterus with image documentation. Exam focused on the clinical indication. COMPARISON: No relevant prior studies available. FINDINGS: Single living fetus in cephalic position. Posterior/fundal placenta. No visible placental abnormality on the provided images. Amniotic fluid volume appears within normal limits for gestation, EUGENIO 20.4 cm. Cervical length was estimated with transabdominal scanning, measuring approximately 4.3 cm. No definite cervical canal dilation or fluid on the provided images. BPD: , 7.8 cm. , 31 weeks, 1 day HC: , 28.2 cm. , 30 weeks, 6 days AC: , 26.8 cm. , 30 weeks, 6 days FL: , 5.9 cm. , 30 weeks, 5 days Composite age: 30 weeks, 6 days. Estimated weight: 1653 grams, (3 lb 10 oz). heart activity documented by the technologist, 136 bpm. Visualized anatomy on the provided images appears within normal limits for gestation, including four-chamber heart, stomach, kidneys, urinary bladder, three-vessel cord, cord insertion, spine, cerebral lateral ventricles, cerebellum, cisterna magna. No visible maternal adnexal abnormality. The urinary bladder was not completely evaluated/imaged at this time. US/US OB >= 14 weeks fetus [id number] IMPRESSION: 1. Single living fetus, composite age: 30 weeks, 6 days. 2. Posterior/fundal placenta. No visible placental abnormality on the provided images. 3. Normal amniotic fluid volume. 4. Other details/findings discussed above.
[2023-05-31] MEDS: cefTRIAXone 1,000 MG, lidocaine 1% 2.1 ML in SYRINGE 1 EACH 2.1 MG IM (00:55)
[2023-05-31] MEDS: acetaminophen 500 mg Tablet 1000 MG PO (02:22)
== END 2023-05-31 04:02 | disposition home or self-care (01) ==
LOC: OPOB 22:30 → OBGYN 22:31
PROVIDERS: Visit Provider Obstetrics & Gynecology
DX: O26.899 Other specified pregnancy related conditions, unspecified trimester (principal); R25.2 Cramp and spasm; Z3A.00 Weeks of gestation of pregnancy not specified
CPT/HCPCS: 59025; 76805; 81001; 87077; 87086; 87186; 96372; 99211; J0696